=== PATIENT | male | born 1995 | race Caucasian/White ===

== ENCOUNTER 2016-11-13 17:46 | Emergency (ER) | payer BC, SELFPAY ==
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
== END 2016-11-13 20:40 | disposition home or self-care (01) ==
LOC: ER 17:46
PROC: 0HQQXZZ Repair Finger Nail, External Approach (ICD-10-PCS; principal; 2016-11-13)
DX: S62.522A Displaced fracture of distal phalanx of left thumb, initial encounter for closed fracture (principal); S61.112A Laceration without foreign body of left thumb with damage to nail, initial encounter; Z88.0 Allergy status to penicillin; Z86.73 Personal history of transient ischemic attack (TIA), and cerebral infarction without residual deficits; X58.XXXA Exposure to other specified factors, initial encounter; Y92.830 Public park as the place of occurrence of the external cause